=== PATIENT | male | born 1990 | race Caucasian/White ===

== ENCOUNTER 2018-02-26 05:18 | Inpatient (IN) | payer OTHER ==
[2018-02-01 09:49] VITALS: BP 136/82
[~2018-02-26] VITALS: Ht 167.6 cm; Wt 105.0 kg
[~2018-02-26 05:18] MED LIST: OXYB5TAB7 PO; TAMS-11 PO
[2018-02-26] MEDS ORDERED: LACTATED RINGERS 1,000 ML IV SCH (06:14)
[2018-02-26] MEDS ORDERED: LIDOCAINE-MPF 1%, 2ML INFIL ONE (06:30)
[2018-02-26 06:42] LABS: MICROSCOPIC INDICATED
[2018-02-26 06:48] LABS: CULTURE INDICATED? NO
[2018-02-26] MEDS ORDERED: EPINEPHRINE 1 MG/ML, 1ML ONE (07:01)
[2018-02-26] MEDS ORDERED: BUPIVACAINE/PF 0.25% ONE (07:01)
[2018-02-26] MEDS ORDERED: FENTANYL PF 250 MCG/5ML ONE ×2 (07:20→11:30)
[2018-02-26] MEDS ORDERED: MIDAZOLAM 1 MG/ML, 2ML ONE (07:20)
[2018-02-26] MEDS ORDERED: GABAPENTIN 300 MG CAPSULE PO ONE (07:30)
[2018-02-26] MEDS ORDERED: ACETAMINOPHEN 500 MG TABLET PO ONE (07:30)
[2018-02-26] MEDS ORDERED: OxyconTIN ER 10 MG TAB.ER PO ONE (07:30)
[2018-02-26 07:38] LABS: AMPHETAMINE SCREEN, URINE Negative (Negative); BARBITURATE SCREEN, URINE Negative (Negative); BENZODIAZEPINE SCREEN, URINE Negative (Negative); CANNABINOID SCREEN, URINE Negative (Negative); COCAINE SCREEN, URINE Negative (Negative); METHADONE SCREEN, URINE Negative (Negative); OPIATE SCREEN, URINE Negative (Negative)
[2018-02-26] MEDS ORDERED: SUCCINYLCHOLINE 20 MG/ML, 10ML ONE (08:01)
[2018-02-26] MEDS ORDERED: DEXAMETHASONE 4 MG/ML, 1ML ONE (08:01)
[2018-02-26] MEDS ORDERED: GENTAMICIN 80 MG/2 ML ONE (08:01)
[2018-02-26] MEDS ORDERED: PIPERACILLIN/TAZO/PMX 3.375GM 50 ML ONE (08:01)
[2018-02-26] MEDS ORDERED: PROPOFOL 10 MG/ML, 20ML ONE (08:01)
[2018-02-26] MEDS ORDERED: ROCURONIUM 10 MG/ML,10ML ONE (08:01)
[2018-02-26] MEDS ORDERED: THROMBIN 5,000 UNIT VIAL TP ONE ×2 (08:15→09:04)
[2018-02-26] MEDS ORDERED: BUPIVACAINE/PF-EPI 0.25% 1:200K IM ONE (09:03)
[2018-02-26] MEDS ORDERED: BACITRACIN OINT 500U/GM, 15 GM ONE (12:14)
[2018-02-26] MEDS ORDERED: PROMETHAZINE 25 MG/ML, 1ML IV PRN (12:30)
[2018-02-26] MEDS ORDERED: ONDANSETRON 2MG/ML, 2ML IVPush PRN (12:30)
[2018-02-26] MEDS ORDERED: METOCLOPRAMIDE 5 MG/ML, 2ML IV PRN (12:30)
[2018-02-26] MEDS ORDERED: ALBUTEROL SULFATE 2.5 MG/3 ML NPPB PRN (12:30)
[2018-02-26] MEDS ORDERED: MEPERIDINE/PF 25MG/0.5ML IVPush PRN (12:30)
[2018-02-26] MEDS ORDERED: OXYcodone 5 MG/5 ML ORAL.SOL UDC PO PRN (12:30)
[2018-02-26] MEDS ORDERED: KETOROLAC 30 MG/1 ML IV PRN (12:30)
[2018-02-26] MEDS ORDERED: hydrALAzine 20 MG/ML, 1ML IV PRN (12:30)
[2018-02-26] MEDS ORDERED: LABETALOL 5MG/ML, 20ML IV PRN (12:30)
[2018-02-26] MEDS ORDERED: FENTANYL PF 100 MCG/2ML ONE (12:49)
[2018-02-26] MEDS: FENTANYL PF 100 MCG/2ML IV PRN ×3 (12:50→13:21)
[2018-02-26] MEDS ORDERED: OXYcodone 5 MG/5 ML ORAL.SOL UDC ONE (12:50)
[2018-02-26] MEDS ORDERED: HYDROmorphone 2 MG/ML, 1ML ONE (13:20)
[2018-02-26] MEDS: HYDROmorphone 1 MG/ML, 1ML IV PRN ×3 (13:22→13:50)
[2018-02-26] MEDS ORDERED: ONDANSETRON 2MG/ML, 2ML IV PRN (15:00)
[2018-02-26] MEDS ORDERED: DIPHENHYDRAMINE 50 MG/ML, 1ML IV PRN (15:00)
[2018-02-26] MEDS ORDERED: morphine SULFATE 10 MG/ML, 1ML IV PRN (15:00)
[2018-02-26] MEDS ORDERED: ACETAMINOPHEN 500 MG TABLET PO PRN (15:00)
[2018-02-26] MEDS: LACTATED RINGERS 1,000 ML IV SCH (16:06)
[2018-02-26] MEDS: OXYBUTYNIN CHLORIDE 5 MG TABLET PO SCH ×2 (16:16→21:22)
[2018-02-26] MEDS: AMOXICILLIN/CLAV 875-125MG TABLET PO SCH ×2 (16:16→21:22)
[2018-02-26] MEDS: HYDROcodone/APAP 5/325 TABLET PO PRN (16:16)
[2018-02-26 20:04] VITALS: BP 105/64
[2018-02-26] MEDS: DOCUSATE 100 MG CAPSULE PO SCH (21:22)
[2018-02-26 23:58] VITALS: BP 104/59
[2018-02-27] MEDS ORDERED: NITR100C56 PO (01:12)
[2018-02-27] MEDS ORDERED: TRAM50TA2 PO (01:13)
[2018-02-27] MEDS ORDERED: DOCU-131 PO (01:14)
[2018-02-27] MEDS ORDERED: NEOM28OI4 TP (01:18)
[2018-02-27] MEDS: LACTATED RINGERS 1,000 ML IV SCH ×2 (02:07→13:14)
[2018-02-27 02:57] VITALS: BP 96/50
[2018-02-27 07:35] VITALS: BP 105/54
[2018-02-27] MEDS: HYDROcodone/APAP 5/325 TABLET PO PRN ×2 (09:58→14:56)
[2018-02-27] MEDS: AMOXICILLIN/CLAV 875-125MG TABLET PO SCH (09:58)
[2018-02-27] MEDS: DOCUSATE 100 MG CAPSULE PO SCH (09:59)
[2018-02-27] MEDS: OXYBUTYNIN CHLORIDE 5 MG TABLET PO SCH (10:00)
[2018-02-27 12:54] VITALS: BP 112/53
== END 2018-02-27 15:45 | disposition home or self-care (01) | DRG 664 ==
LOC: OUT 05:18 → 4NOR 14:39 → OUT 22:00 → 4NOR 22:01
PROVIDERS: ADMIT Urology; ATTEND Urology
PROC: 0TBD0ZZ Excision of Urethra, Open Approach (ICD-10-PCS; 2018-02-26)
PROC: 0W3R8ZZ Control Bleeding in Genitourinary Tract, Via Natural or Artificial Opening Endoscopic (ICD-10-PCS; principal; 2018-02-26 07:30)
DX: N35.9 Urethral stricture, unspecified (principal)
CPT/HCPCS: 80307; 81001; 87086; 88305; J0171; J1100; J1170; J2250; J2543; J2704; J3010; J3490; J0330; J1580; J7120